=== PATIENT | male | born 1940 | race Caucasian/White ===

== ENCOUNTER → 2018-01-21 | Emergency (ER) | payer MEDICARE, OTHER ==
[~2018-01-21] VITALS: Ht 182.9 cm; Wt 79.4 kg
[~2018-01-21] MED LIST: AMITRIPTYLINE H50 MG; ANTACID ANTI-G355 ML PO; BONE DENSITY C1 EACH PO; CARBIDOPA-LEVO1 EA10; CLARITIN10 M2 PO; COLACE100 MG PO; COLACE50 MG; DILANTIN100 MG PO; GENERLAC10 GM/15 M; ISOSORBIDE DINI20 MG PO; KEFLEX500 MG PO; METOPROLOL SUCC25 MG; MILK OF MA400 MG/5 M PO; OMEPRAZOLE40 MG PO; POLYETHYLENE GL17 GM PO; POLYETHYLENE2500 GM; SENNA; TRANSDERM-SCOP1 EA TD; TRIAMTERENE-HC1 EAC3; TYLENOL325 MG PO; VOLTAREN100 GM TOP; ZOFRAN ODT4 MG PO
--- OUTSIDE RECORDS SUMMARY | ~2018-01-21 | XMS | Clinical Summary ---
Demographics + + + | Address | [address] | | | [place] [address] | + + + | Home Phone | | + + + | Preferred Language | Unknown | + + + | Marital Status | Unknown | + + + | Baptism Affiliation | Unknown | + + + | Race | Unknown | + + + | Ethnic Group | Unknown | + + + Author + + + | Author | [facility] | | | and [facility] | + + + | Organization | [facility] | | | and [facility] | + + + | Address | Unknown | + + + | Phone | Unavailable | + + + Care Team Providers + +------+ + | Care Flavor Tank Tender Name | Role | Phone | + +------+ + PP | Unavailable | + +------+ + Allergies Not on File Current Medications Not on file Active Problems Not on file Social History + +-------+ +--------+------+ | Tobacco Use | Types | Packs/Day | Years | Date | | | | | Used | | + +-------+ +--------+------+ | Never Assessed | | | | | + +-------+ +--------+------+ + + + | Sex Assigned at | Date Recorded | | | | + + + | Not on file | | + + + Plan of Treatment + + + + + | Health Maintenance | Due Date | Last Done | Comments | + + + + + | Vaccine: | | | | | Dtap/Tdap/Td (1 - | 8 | | | | Tdap) | | | | + + + + + | Vaccine: | | | | | Pneumococcal 65+ | 4 | | | | Low/Medium Risk (1 | | | | | of 2 - PCV13) | | | | + + + + + | Vaccine: Influenza | | | | | (Season Ended) | 8 | | | + + + + + Results Not on filefrom Last 3 Months"
--- OUTSIDE RECORDS SUMMARY | ~2018-01-21 | XMS | Clinical Summary ---
Demographics + + + | Address | [address] | | | [place] [address] | + + + | Home Phone | | + + + | Preferred Language | Unknown | + + + | Marital Status | Unknown | + + + | Mu-Ism Affiliation | Unknown | + + + | Race | Unknown | + + + | Ethnic Group | Unknown | + + + Author + + + | Author | [facility] | | | [facility] | + + + | Organization | [facility] | | | and [facility] | + + + | Address | Unknown | + + + | Phone | Unavailable | + + + Care Team Providers + +------+ + | Care Funeral Counselor Name | Role | Phone | + [...]
--- OUTSIDE RECORDS SUMMARY | ~2018-01-21 | XMS | Clinical Summary ---
Demographics + + + | Address | [address] | | | [place] [address] | + + + | Home Phone | | + + + | Preferred Language | Unknown | + + + | Marital Status | Single | + + + | Mandaeism Affiliation | Unknown | + + + | Race | Unknown | + + + | Ethnic Group | Other Race | + + + Author + + + | Author | [facility] | + + + | Organization | NON REVENUE LOC[facility] | + + + | Address | Unknown | + + + | Phone | Unavailable | + + + Support + + +---------+ + | Name | Relationship | Address | Phone | + + +---------+ + | NONE,NONE | ECON | Unknown | Unavailable | + + +---------+ + Care Team Providers + +------+ + | Care Exercise Manager Name | Role | Phone | + +------+ + PP | Unavailable | + +------+ + Source Comments [facility] is fully live on both [facility] and [facility] Allergies Not on File Current Medications Not [...] | + + + + + | INFLUENZA VACCINE | | | | | (FLU SHOT) | 8 | | | + + + + + Results Not on filefrom Last 3 Months"
--- OUTSIDE RECORDS SUMMARY | ~2018-01-21 | XMS | Clinical Summary ---
Demographics + + + | Address | [address] | | | [place] [address] | + + + | Home Phone | | + + + | Preferred Language | Unknown | + + + | Marital Status | Single | + + + | Sabianism Affiliation | Unknown | + + + [...] Team Providers + +------+ + | Care Pharmacologist Name | Role | Phone | + +------+ + PP | Unavailable | + +------+ + Source Comments [facility] is fully live on both [facility] and [facility] InPatient.[facility] Allergies Not on File Current [...]
== END ==
LOC: ED 20:04
PROC: 0T9B70Z Drainage of Bladder with Drainage Device, Via Natural or Artificial Opening (ICD-10-PCS; principal; 2018-01-21)
DX: N39.0 Urinary tract infection, site not specified (principal); K46.9 Unspecified abdominal hernia without obstruction or gangrene; I11.0 Hypertensive heart disease with heart failure; I50.9 Heart failure, unspecified; F02.80 Dementia in other diseases classified elsewhere, unspecified severity, without behavioral disturbance, psychotic disturbance, mood disturbance, and anxiety; G20 Parkinson's disease; Z91.010 Allergy to peanuts; Z79.899 Other long term (current) drug therapy
CPT/HCPCS: 51701; 80053; 81001; 83690; 85025; 87077; 87088; 87186; 99283